=== PATIENT | male | born 1970 | race Caucasian/White ===

== ENCOUNTER → 2016-04-23 | Day surgery (SDC) | payer OTHER ==
[~2016-04-23] MED LIST: ATORVASTATIN CA10 MG PO; CENTRUM COMPLE1 EACH PO; FLEXERIL10 MG PO; MONTELUKAST SOD10 MG PO; ZYRTEC10 M1 PO; ZYRTEC10 M2 PO
--- NOTE | ~2016-04-23 | OR ---
Unit #: [id number] #: [id number] Patient: WILLY MOSHER [id number] [address] [place], [place] [address] [id number] MR#: [id number] NAME: WILLY MOSHER ROOM: Date of Procedure: 04/23/2016 Admission Date: 04/23/2016 Surgeon: Hermes Lu M.D. : 1970 Attending Physician: Hermes Lu M.D. Referring Physician: Hermes Lu M.D. Primary Care Physician: Lyle Calderon M.D. OPERATIVE REPORT JOB NOTE: CC: [facility]. PREOPERATIVE DIAGNOSES Herniated nucleus pulposus, back pain, radiculopathy. POSTOPERATIVE DIAGNOSES Herniated nucleus pulposus, back pain, radiculopathy. PROCEDURE PERFORMED Lumbar epidural steroid injection with intravenous sedation and fluoroscopic guidance for needle localization. INDICATIONS FOR PROCEDURE The patient is a 45-year-old male with back and right lower extremity pain, associated with disk herniation at the L4-5 level. This has been present for some time, recently had increased significantly. He failed to settle with other conservative measures. Four weeks ago, initial epidural steroid injection was done, which resulted in moderate good improvement in his back and leg issues. Based on his good partial response, his pathology, and symptomatology, we are going to proceed with a repeat epidural steroid injection today. DESCRIPTION OF PROCEDURE The patient was placed in a seated position. Standard monitors were applied. 2 mg of Versed were given for sedation and anxiolysis, which were adequate. Vital signs remained stable. Sterile prep and drape then of the lumbar area was performed. The skin at the L4-L5 level was localized with 1% lidocaine. An 18-gauge Moogitead needle was then advanced via loss of resistance technique and fluoroscopic guidance in toward the epidural space. After confirming proper needle tip positioning with fluoroscopy and radiographic contrast, 80 mg of Depo-Medrol and 4 mL of 0.125% bupivacaine were deposited. The patient tolerated the procedure otherwise well and was discharged to the recovery room in stable condition. Dictated by... Hermes Lu M.D. LHP/cas TD: 04/24/2016 02:56 Unit #: [id number] #: [id number] Patient: WILLY MOSHER JOB #: [id number] OPERATIVE REPORT X Hermes Lu MD X PROCEDURE OPERATIVE NOTE
== END | disposition home or self-care (01) ==
LOC: CCSC 08:22
DX: M51.16 Intervertebral disc disorders with radiculopathy, lumbar region (principal)
CPT/HCPCS: J1040; J2250